=== PATIENT | male | born 1990 | race Caucasian/White ===

== ENCOUNTER 2022-05-31 21:00 | Emergency (ER) | payer SELFPAY ==
[~2022-05-31] VITALS: Ht 180.3 cm; Wt 91.0 kg
[2022-05-31 22:21] LABS: BASOPHILS % 0.6 % (0.0-2.0); EOSINOPHILS % 0.3 % (0.0-5.0); HEMATOCRIT. 45.6 % (42.0-52.0); HEMOGLOBIN. 15.8 g/dL (14.0-18.0); LYMPHOCYTES % 28.5 % (20.0-50.0); MEAN CORPUSCULAR HEMOGLOBIN 31.3 pg (28.0-32.0); MEAN CORPUSCULAR VOLUME 90.5 fL (80.0-94.0); MEAN PLATELET VOLUME 8.6 fl (7.4-10.4); MONOCYTES % 10.4 % (2.0-8.0); NEUTROPHILS % 60.2 % (40.0-76.0); PLATELET 381 x1000/uL (130-400); RED BLOOD CELL COUNT 5.04 mill/uL (4.7-6.1); RED CELL DISTRIBUTION WIDTH 12.9 % (11.6-14.6)
[2022-05-31 22:29] LABS: CHLORIDE 105 mEq/L (98-107)
[2022-05-31 22:37] LABS: CREATINE KINASE 382 IU/L (39-308); ETHANOL BLOOD < 10 mg/dL
[2022-05-31 23:27] LABS: CLARITY URINE CLEAR (CLEAR); COLOR URINE DARK YELLOW (YELLOW); KETONES URINE 3+ (NEGATIVE); LEUKOCYTE ESTERASE URINE TRACE (NEGATIVE); NITRITE URINE NEGATIVE (NEGATIVE); OCCULT BLOOD URINE NEGATIVE (NEGATIVE); PH URINE 5.5 (4.5-8.0); PROTEIN URINE 1+ (NEGATIVE)
[2022-05-31 23:42] LABS: *AMPHETAMINES SCREEN URINE NEGATIVE (NEGATIVE); *BARBITURATES SCREEN URINE NEGATIVE (NEGATIVE); *BENZODIAZEPINES SCREEN URINE NEGATIVE (NEGATIVE); *COCAINE SCREEN URINE NEGATIVE (NEGATIVE); CANNABINOID URINE SCREEN PRESUMTIVE POSITIVE (NEGATIVE); METHADONE URINE SCREEN NEGATIVE (NEGATIVE); OPIATES URINE SCREEN NEGATIVE (NEGATIVE); PHENCYCLIDINE URINE SCREEN NEGATIVE (NEGATIVE)
[2022-06-01] MEDS ORDERED: OLANZAPINE 10 MG/VIAL IM ONE ×2 (05:00→10:45)
[2022-06-01] MEDS ORDERED: MIDAZOLAM HCL 2 MG/2 ML VIAL IM ONE ×2 (10:45→14:45)
[2022-06-01] MEDS: DIVALPROEX SODIUM 500MG DR TABLET PO SCH ×2 (12:00→21:00)
[2022-06-01] MEDS: OLANZAPINE 5MG TABLET ODT PO SCH (17:00)
[2022-06-01] MEDS ORDERED: ZIPRASIDONE MESYLATE 20MG/VIAL IM ONE (20:15)
[2022-06-02] MEDS: OLANZAPINE 5MG TABLET ODT PO SCH (10:03)
[2022-06-02] MEDS: DIVALPROEX SODIUM 500MG DR TABLET PO SCH ×2 (10:03→21:00)
[2022-06-02] MEDS: ZIPRASIDONE HCL 20MG CAPSULE PO SCH ×2 (11:15→16:32)
[2022-06-02] MEDS: LORAZEPAM 1MG TABLET PO PRN ×2 (11:49→22:44)
[2022-06-02] MEDS: METHYLPHENIDATE HCL 5MG TABLET PO SCH (14:10)
[2022-06-03] MEDS: DIVALPROEX SODIUM 500MG DR TABLET PO SCH ×2 (09:00→21:00)
[2022-06-03] MEDS: ZIPRASIDONE HCL 20MG CAPSULE PO SCH ×2 (09:00→17:00)
[2022-06-03] MEDS: METHYLPHENIDATE HCL 5MG TABLET PO SCH ×2 (09:00→17:00)
[2022-06-03] MEDS: LORAZEPAM 1MG TABLET PO PRN ×2 (09:31→17:15)
[2022-06-03] MEDS ORDERED: ZIPRASIDONE MESYLATE 20MG/VIAL IM ONE (21:00)
[2022-06-04] MEDS: METHYLPHENIDATE HCL 5MG TABLET PO SCH (10:50)
[2022-06-04] MEDS: DIVALPROEX SODIUM 500MG DR TABLET PO SCH (11:02)
[2022-06-04] MEDS: ZIPRASIDONE HCL 20MG CAPSULE PO SCH (11:03)
[2022-06-04 11:34] VITALS: BP 141/85
== END 2022-06-04 11:35 | disposition home or self-care (01) ==
LOC: ER 21:00
DX: F33.9 Major depressive disorder, recurrent, unspecified (principal); R45.851 Suicidal ideations; F15.951 Other stimulant use, unspecified with stimulant-induced psychotic disorder with hallucinations; R45.1 Restlessness and agitation; F15.929 Other stimulant use, unspecified with intoxication, unspecified; F91.8 Other conduct disorders; M54.50 Low back pain, unspecified; Z20.822 Contact with and (suspected) exposure to COVID-19; F12.90 Cannabis use, unspecified, uncomplicated; Z78.1 Physical restraint status; Z75.1 Person awaiting admission to adequate facility elsewhere
CPT/HCPCS: 36415; 80053; 80305; 80307; 80320; 80329; 81003; 82550; 83690; 85025; 96372; 99285; C9803; J2250; J3486; J3490; U0003; U0005; G0480